=== PATIENT | female | born 1960 | race Caucasian/White ===

== ENCOUNTER 2019-05-30 06:30 | Inpatient (IN) | payer MEDICAID ==
[~2019-05-30] VITALS: Ht 188 cm; Wt 74.8 kg
[2019-05-30] MEDS ORDERED: LACTATED RINGERS 1,000 ML IV SCH (08:30)
[2019-05-30] MEDS ORDERED: AMLO5TAB88 PO (09:53)
[2019-05-30] MEDS ORDERED: HYDROMORPHONE HCL/PF 2MG/ML CPJ IV PRN (14:15)
[2019-05-30] MEDS ORDERED: HYDROCODONE/ACETAMINOPHEN 5/325MG TABLET PO PRN ×2 (16:15)
[2019-05-30] MEDS ORDERED: ACETAMINOPHEN 325MG TABLET PO PRN (16:15)
[2019-05-30] MEDS ORDERED: MAGNESIUM HYDROXIDE 400MG/5ML 30ML UDC PO PRN (16:15)
[2019-05-30] MEDS ORDERED: ZOLPIDEM TARTRATE 5MG TABLET PO PRN (16:15)
[2019-05-30] MEDS ORDERED: ONDANSETRON HCL 4MG/2ML INJ IV PRN (16:15)
[2019-05-30] MEDS ORDERED: MORPHINE PCA 50 ML IV ONE (17:26)
[2019-05-30] MEDS ORDERED: DIPHENHYDRAMINE INJ IV PRN (17:30)
[2019-05-30] MEDS ORDERED: NALOXONE INJ IV PRN (17:30)
[2019-05-30] MEDS ORDERED: ONDANSETRON INJ IV PRN (17:30)
[2019-05-30] MEDS ORDERED: MORPHINE PCA 50MG/50ML IV PRN (17:30)
[2019-05-30] MEDS ORDERED: HYDRALAZINE 20MG/ML VIAL IV SCH (18:00)
[2019-05-30 20:00] VITALS: BP 123/70
[2019-05-31] VITALS: BP_SYST 111; BP_SYST 124; BP_DIAS 69; BP_DIAS 74
[2019-05-31] MEDS: CEFAZOLIN 2,000 MG in DEXT 5% WATER 100 ML IV SCH ×2 (03:08→09:50)
[2019-05-31 04:00] VITALS: BP 111/69
[2019-05-31 08:00] VITALS: BP 127/73
[2019-05-31] MEDS ORDERED: DOCUSATE SODIUM 100MG CAPSULE PO SCH (09:00)
[2019-05-31 12:00] VITALS: BP 128/78
[2019-05-31 15:10] VITALS: BP 128/78
[2019-05-31 16:00] VITALS: BP 127/76
[2019-05-31 16:26] LABS: BASOPHILS % 0.2 % (0.0-2.0); HEMOGLOBIN. 12.3 g/dL (12.0-16.0); LYMPHOCYTES % 12.1 % (20.0-50.0); MEAN CORPUSCULAR HEMOGLOBIN 29.7 pg (28.0-32.0); MEAN CORPUSCULAR VOLUME 86.9 fL (81.0-99.0); MEAN PLATELET VOLUME 7.9 fl (7.4-10.4); MONOCYTES % 5.2 % (2.0-8.0); NEUTROPHILS % 82.5 % (40.0-76.0); PLATELET 322 x1000/uL (130-400); RED BLOOD CELL COUNT 4.15 mill/uL (4.2-5.4); RED CELL DISTRIBUTION WIDTH 13.7 % (11.6-14.6)
[2019-05-31 16:36] LABS: CHLORIDE 106 mEq/L (98-107)
== END 2019-05-31 15:57 | disposition home or self-care (01) | DRG 315 ==
LOC: OR 06:30 → 6EST 23:21
PROVIDERS: ADMIT Orthopaedic Surgery; ATTEND Orthopaedic Surgery
PROC: 0LQ20ZZ Repair Left Shoulder Tendon, Open Approach (ICD-10-PCS; principal; 2019-05-30)
PROC: 0LN20ZZ Release Left Shoulder Tendon, Open Approach (ICD-10-PCS; 2019-05-30)
DX: M75.122 Complete rotator cuff tear or rupture of left shoulder, not specified as traumatic (principal); G89.29 Other chronic pain; I10 Essential (primary) hypertension; M65.812 Other synovitis and tenosynovitis, left shoulder; M75.02 Adhesive capsulitis of left shoulder; M75.22 Bicipital tendinitis, left shoulder; M75.42 Impingement syndrome of left shoulder; M77.9 Enthesopathy, unspecified
CPT/HCPCS: 36415; 80048; 82962; 88304; 88311; 97166; 97530; A4565; C1713; J0690; J2270; J7040; J7060